=== PATIENT | female | born 1975 | race Caucasian/White ===

== ENCOUNTER 2016-07-27 14:35 | Emergency (ER) ==
[2016-07-27 14:39] VITALS: BP 115/80; TEMP 98.8; BMI 25.4
== END 2016-07-27 15:00 | disposition left against medical advice (07) ==
LOC: ED 14:35
DX: H92.03 Otalgia, bilateral (principal)
CPT/HCPCS: 99281

== ENCOUNTER 2016-12-16 11:55 | Outpatient (CLI) ==
[2016-12-16 12:03] LABS: BASOPHILS # (AUTO) 0.1 K/uL (0-0.2); BASOPHILS % (AUTO) 0.5 % (0.0-3.0); EOSINOPHILS # (AUTO) 0.2 K/ul (0.0-0.7); EOSINOPHILS % (AUTO) 1.6 % (0.0-7.0); HEMATOCRIT 37.1 % (37.0-47.0); HEMOGLOBIN 12.8 g/dl (12.0-16.0); IMMATURE GRANULOCYTE % (AUTO) 0.5 % (0.0-5.0); LYMPHOCYTES # (AUTO) 3.6 K/uL (0.60-3.4); MEAN CORPUSCULAR HEMOGLOBIN 31.8 pg (27.0-31.0); MEAN CORPUSCULAR HGB CONC 34.5 (31.8-35.4); MEAN CORPUSCULAR VOLUME 92.1 fl (81.0-99.0); MONOCYTES # (AUTO) 0.8 K/uL (0.4-2.0); MONOCYTES % (AUTO) 5.6 (0-10); NEUTROPHILS # (AUTO) 10.1 K/ul (2.0-6.9); NEUTROPHILS % (AUTO) 67.8; PLATELET COUNT 267 10^3/uL (140-440); RED BLOOD COUNT 4.03 10^6/ul (4.20-5.40)
--- NOTE | 2016-12-16 12:31 | DI ---
EXAM: Right wrist three-view HISTORY: Pain in right wrist COMPARISON: None FINDINGS/IMPRESSIOn: There is a surgical side plate with multiple fixation screws in the distal rad ius with lucency distal radius may represent surgically transfixed fracture or remodeling changes fr om old fracture. Recommend correlation with iming of injury/surgery. Small calcifications near the ulnar styloid, likely nonacute appearing avulsion fracture. No dislocation. No focal soft tissue abnormality.
--- NOTE | 2016-12-16 12:35 | DI ---
EXAM: Right elbow four views HISTORY: Pain in right elbow COMPARISON: None FINDINGS/IMPRESSIOn: There is bulky spurring and/or remodeling in the region of the anterior distal humerus/trochlea that may be due to remodeling and degenerative changes from old trauma. There is a rounded lucency in this region, probably mach artifact secondary to the extensive spurring, though an osteochondral defect is not excluded. More mild scattered spurring and degenerative change thro ughout the elbow. Small calcification near the radiocapitellar region may be degenerative or due to old trauma. No joint effusion.
[2016-12-16 12:44] LABS: ALBUMIN 3.9 g/dL (3.4-5.0); ALBUMIN/GLOBULIN RATIO 1.22; ANION GAP 13.9; BILIRUBIN,TOTAL 0.51 mg/dL (0.00-1.20); BUN/CREATININE RATIO 10.14; CALCIUM 9.1 mg/dL (8.2-10.2); CREATININE 0.69 mg/dL (0.60-1.30); POTASSIUM 3.9 mmol/L (3.5-5.10); TOTAL PROTEIN 7.1 g/dL (6.4-8.2)
== END 2016-12-16 11:56 | disposition home or self-care (01) ==
LOC: RAD 11:55
PROVIDERS: ATTEND Nurse Practitioner Family
DX: M25.531 Pain in right wrist (principal); M25.521 Pain in right elbow; F41.9 Anxiety disorder, unspecified
CPT/HCPCS: 36415; 80053; 84443; 85025

== ENCOUNTER 2016-12-22 11:54 | Outpatient (CLI) ==
--- NOTE | 2016-12-22 13:36 | CT ---
EXAM: CT of the right upper extremity without contrast History: Right wrist pain. Comparison: Right wrist radiograph 12/16/2016. Technique: Multiplanar CT images through the right wrist were obtained without the administration o f IV contrast Findings: No acute fracture or dislocation. A few small calcific densities are seen within the tria ngular fibrocartilage. Hardware within the distal radius is grossly intact. There is some osseous i rregularity of the articular surface of the distal radius. Impression: 1. Grossly intact hardware within the distal radius. 2. No definite acute fractures are seen but there is osseous irregularity along the articular surfa ce of the distal radius which is probably old and can lead to accelerated degenerative changes. If pain persists, recommend further evaluation with MRI. 3. A few small calcific densities seen within the triangular fibrocartilage could be related to cho ndrocalcinosis or old trauma.
== END 2016-12-22 11:55 | disposition home or self-care (01) ==
LOC: RAD 11:54
PROVIDERS: ATTEND Nurse Practitioner Family
DX: M25.531 Pain in right wrist (principal)

== ENCOUNTER 2016-12-22 12:48 | Emergency (ER) ==
[2016-12-22 12:54] VITALS: BP 117/81; TEMP 98.7; BMI 23.0
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
== END 2016-12-22 13:31 | disposition home or self-care (01) ==
LOC: ED 12:48
DX: M25.531 Pain in right wrist (principal); F17.210 Nicotine dependence, cigarettes, uncomplicated
CPT/HCPCS: 99282

== ENCOUNTER 2017-06-02 16:24 | Outpatient (CLI) ==
[2017-06-02 16:39] LABS: FLU INTERNAL QC INTERNAL QC VALID; RAPID FLU A NEGATIVE (NEGATIVE); RAPID FLU B NEGATIVE (NEGATIVE)
== END 2017-06-02 16:25 | disposition home or self-care (01) ==
LOC: LAB 16:24
PROVIDERS: ATTEND Nurse Practitioner Family
DX: J02.9 Acute pharyngitis, unspecified (principal); R50.9 Fever, unspecified
CPT/HCPCS: 87651; 87804; 87880

== ENCOUNTER 2018-09-04 14:47 | Emergency (ER) ==
[2018-09-04 14:52] VITALS: BP 143/86; TEMP 98; BMI 24.1
[2018-09-04] MEDS ORDERED: SOLU-MEDROL 125 MG IM STA (15:41)
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
== END 2018-09-04 16:16 | disposition home or self-care (01) ==
LOC: ED 14:47
DX: H92.09 Otalgia, unspecified ear (principal); R53.81 Other malaise; R09.82 Postnasal drip; J30.2 Other seasonal allergic rhinitis
CPT/HCPCS: 96372; 99282

== ENCOUNTER 2018-09-05 14:00 | Emergency (ER) ==
[2018-09-05 14:07] VITALS: BP 152/83; TEMP 98.9; BMI 23.6
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
[2018-09-05] MEDS ORDERED: TORADOL IM STA (14:25)
== END 2018-09-05 15:05 | disposition home or self-care (01) ==
LOC: ED 14:00
DX: H92.01 Otalgia, right ear (principal); R09.82 Postnasal drip; Z72.0 Tobacco use; J34.89 Other specified disorders of nose and nasal sinuses
CPT/HCPCS: 96372; 99282